=== PATIENT | male | born 1965 | race Caucasian/White ===

== ENCOUNTER 2017-08-02 11:07 | Emergency (ER) | payer SELFPAY ==
[~2017-08-02] VITALS: Ht 172.7 cm; Wt 82.0 kg
[2017-08-02 11:10] VITALS: BP 139/82
[2017-08-02] MEDS ORDERED: ACETAMINOPHEN 325MG TABLET PO ONE (11:30)
== END 2017-08-02 12:53 | disposition home or self-care (01) ==
LOC: ER 11:07
DX: S09.90XA Unspecified injury of head, initial encounter (principal); V43.52XA Car driver injured in collision with other type car in traffic accident, initial encounter; Y93.89 Activity, other specified; Y92.488 Other paved roadways as the place of occurrence of the external cause; Y99.8 Other external cause status
CPT/HCPCS: 70450; 99284